=== PATIENT | female | born 1995 | race Caucasian/White ===

== ENCOUNTER → 2017-08-21 | Outpatient (CLI) | payer OTHER ==
--- NOTE | 2017-08-21 15:14 | REP ---
FIRST TRIMESTER ULTRASOUND: Real-time sonographic evaluation of the pelvis performed utilizing transabdominal and endovaginal technique. The uterus measures 8.2 x 4.6 x 5.0 cm. Endometrial thickness is mildly increased at 17 mm. There is no intrauterine gestational sac or endometrial fluid collection. The right ovary measures 3.1 x 1.4 x 2.5 cm and left ovary 3.4 x 2.4 x 3.3 cm. There is no torsion bilaterally with blood flow seen in each ovary with duplex Doppler evaluation, RI right ovary 0.73 and left ovary 0.52. Dominant follicle measures 2.3 x 1.8 x 2.0 cm in the left ovary. There is no other evidence of adnexal mass. There is trace free fluid in the cul-de-sac. IMPRESSION: Mild thickening of the endometrium without an intrauterine gestational sac. No torsion and no adnexal mass. Trace free fluid in the cul-de-sac. Findings could represent early intrauterine , missed AB or ectopic . Suggest correlation with serial quantitative beta hCG values. Signed by Renard Zaman MD 08/21/2017 03:16 P
== END ==
LOC: M LAB 11:39
PROVIDERS: ATTEND Obstetrics & Gynecology
DX: Z34.81 Encounter for supervision of other normal pregnancy, first trimester (principal)

== ENCOUNTER → 2017-08-23 | Outpatient (CLI) | payer OTHER | LOC: M LAB 10:55 | PROVIDERS: ATTEND Midwife | DX: Z32.00 Encounter for pregnancy test, result unknown (principal) ==

== ENCOUNTER 2018-02-18 08:48 | Emergency (ER) | payer OTHER ==
[2018-02-18 09:43] LABS: CONTROL LINE UCG INT CTR LINE PRESENT; URINE PREG TEST NEGATIVE (NEGATIVE)
[2018-02-18 09:48] LABS: KETONE, URINE AUTO RFX NEGATIVE (NEGATIVE); NITRITE, URINE AUTO RFX NEGATIVE (NEGATIVE); RBC, URINE AUTO RFX 0 /HPF (0-3); SQUAM EPITHELIAL CELL UR AURFX 0 /HPF (0-6)
[2018-02-18] MEDS: KETOROLAC TROMETHAMINE 10 MG TAB PO (09:54)
[2018-02-18] MEDS: PHENAZOPYRIDINE 100 MG TAB PO (09:55)
[2018-02-18 10:01] LABS: LEUKOCYTE ESTERASE UR AUTO RFX 3+ (NEGATIVE); WBC, URINE AUTO RFX 14 /HPF (0-3)
== END 2018-02-18 10:29 | disposition home or self-care (01) ==
LOC: M ED 08:48
DX: N30.91 Cystitis, unspecified with hematuria (principal); Z79.3 Long term (current) use of hormonal contraceptives; Z79.899 Other long term (current) drug therapy; Z88.0 Allergy status to penicillin
CPT/HCPCS: 84703

== ENCOUNTER → 2018-04-08 | Outpatient (REF) | payer OTHER ==
[2018-04-08 13:32] LABS: APPEARANCE, URINE CLEAR (CLEAR); BACTERIA, URINE AUTO NEGATIVE (NEGATIVE); BILIRUBIN, URINE AUTO NEGATIVE (NEGATIVE); BLOOD, URINE BLOOD 1+ (NEGATIVE); COLOR, URINE YELLOW (YELLOW); GLUCOSE, URINE (UA) AUTO NEGATIVE (NEGATIVE); KETONE, URINE AUTO NEGATIVE (NEGATIVE); LEUKOCYTE ESTERASE, URINE AUTO NEGATIVE (NEGATIVE); MUCUS, URINE SMALL (NEGATIVE); NITRITE, URINE AUTO NEGATIVE (NEGATIVE); PROTEIN, URINE AUTO NEGATIVE (NEGATIVE); RBC, URINE AUTO 4 /HPF (0-3); SQUAMOUS EPITHELIAL CELL UR AU 1 /HPF (0-6); UROBILINOGEN, URINE AUTO 0.2 mg/dL (0.0-2.0); WBC, URINE AUTO 2 /HPF (0-3)
== END ==
LOC: M SMT 13:14
DX: N39.0 Urinary tract infection, site not specified (principal)

== ENCOUNTER → 2018-04-09 | Outpatient (CLI) | payer OTHER | LOC: M WHC 10:26 | DX: N39.0 Urinary tract infection, site not specified (principal) | CPT/HCPCS: 76857 ==

== ENCOUNTER 2018-04-28 20:56 | Emergency (ER) | payer OTHER ==
[2018-04-28 21:34] LABS: CONTROL LINE UCG INT CTR LINE PRESENT; URINE PREG TEST POSITIVE (NEGATIVE)
[2018-04-28 21:35] LABS: KETONE, URINE AUTO RFX NEGATIVE (NEGATIVE); LEUKOCYTE ESTERASE UR AUTO RFX NEGATIVE (NEGATIVE); MUCUS, URINE RFX SMALL (NEGATIVE); NITRITE, URINE AUTO RFX NEGATIVE (NEGATIVE); RBC, URINE AUTO RFX 1 /HPF (0-3); SPECIFIC GRAVITY UR AUTO RFX 1.009 (1.002-1.035); SQUAM EPITHELIAL CELL UR AURFX 4 /HPF (0-6); WBC, URINE AUTO RFX 1 /HPF (0-3)
[2018-04-28 21:59] LABS: BASO % 0.3 % (0.0-1.0); EOS # 0.1 10^3/uL (0.0-0.50); EOS % 1.1 % (0.0-3.0); HEMATOCRIT 37.3 % (36.0-47.0); HEMOGLOBIN 12.6 g/dl (12.0-15.5); IMMATURE GRANULOCYTE % 0.4 % (0-3.0); LYMPH # 2.3 10^3/uL (1.5-6.5); LYMPH % 31.2 % (24.0-44.0); MEAN CORPUSCULAR HEMOGLOBIN 29.4 pg (27.0-33.0); MEAN CORPUSCULAR HGB CONC 33.8 g/dl (32.0-36.5); MEAN CORPUSCULAR VOLUME 87.1 fl (80.0-96.0); MONO # 0.5 10^3/uL (0.0-0.8); MONO % 6.6 % (0.0-5.0); NEUTROPHILS # 4.5 10^3/uL (1.8-7.7); NEUTROPHILS % 60.4 % (36.0-66.0); PLATELET COUNT, AUTOMATED 220 10^3/uL (150-450); RED BLOOD COUNT 4.28 10^6/uL (4.00-5.40); RED CELL DISTRIBUTION WIDTH 13.6 % (11.5-14.5); WHITE BLOOD COUNT 7.4 10^3/uL (4.0-10.0)
[2018-04-28 22:37] LABS: HCG, SERUM QUANTITATIVE 9014 MIU/ML
== END 2018-04-29 00:46 | disposition home or self-care (01) ==
LOC: M ED 04-29 00:46
DX: O26.891 Other specified pregnancy related conditions, first trimester (principal); R10.2 Pelvic and perineal pain; Z3A.01 Less than 8 weeks gestation of pregnancy; Z88.0 Allergy status to penicillin
CPT/HCPCS: 76801

== ENCOUNTER 2018-05-05 11:46 | Emergency (ER) | payer OTHER ==
[2018-05-05 12:23] LABS: KETONE, URINE AUTO RFX NEGATIVE (NEGATIVE); NITRITE, URINE AUTO RFX NEGATIVE (NEGATIVE); RBC, URINE AUTO RFX 1 /HPF (0-3); SQUAM EPITHELIAL CELL UR AURFX 0 /HPF (0-6); WBC, URINE AUTO RFX 9 /HPF (0-3)
[2018-05-05 12:33] LABS: LEUKOCYTE ESTERASE UR AUTO RFX 3+ (NEGATIVE)
== END 2018-05-05 13:15 | disposition home or self-care (01) ==
LOC: M ED 11:46
DX: O23.41 Unspecified infection of urinary tract in pregnancy, first trimester (principal); Z88.0 Allergy status to penicillin; Z3A.01 Less than 8 weeks gestation of pregnancy
CPT/HCPCS: 81001

== ENCOUNTER 2018-06-22 18:25 | Emergency (ER) | payer OTHER ==
[2018-06-22 20:38] LABS: CONTROL LINE UCG INT CTR LINE PRESENT; URINE PREG TEST POSITIVE (NEGATIVE)
[2018-06-22 20:48] LABS: KETONE, URINE AUTO RFX NEGATIVE (NEGATIVE); LEUKOCYTE ESTERASE UR AUTO RFX NEGATIVE (NEGATIVE); NITRITE, URINE AUTO RFX NEGATIVE (NEGATIVE); RBC, URINE AUTO RFX 2 /HPF (0-3); SPECIFIC GRAVITY UR AUTO RFX 1.009 (1.002-1.035); SQUAM EPITHELIAL CELL UR AURFX 2 /HPF (0-6); WBC, URINE AUTO RFX 1 /HPF (0-3)
[2018-06-22 23:34] LABS: CHLAMYDIA DNA AMPLIFICATION NEGATIVE (NEGATIVE); GC DNA AMPLIFICATION NEGATIVE (NEGATIVE)
== END 2018-06-22 22:53 | disposition home or self-care (01) ==
LOC: M ED 18:25
DX: O26.891 Other specified pregnancy related conditions, first trimester (principal); R10.2 Pelvic and perineal pain; Z3A.13 13 weeks gestation of pregnancy; Z88.0 Allergy status to penicillin
CPT/HCPCS: 84703

== ENCOUNTER 2018-07-12 11:33 | Emergency (ER) | payer OTHER | END 2018-07-12 14:36 | disposition home or self-care (01) | LOC: M ED 11:33 | DX: O23.592 Infection of other part of genital tract in pregnancy, second trimester (principal); B37.3 Candidiasis of vulva and vagina; Z3A.16 16 weeks gestation of pregnancy; Z88.0 Allergy status to penicillin; Z87.440 Personal history of urinary (tract) infections; Z79.2 Long term (current) use of antibiotics | CPT/HCPCS: 99284 ==

== ENCOUNTER → 2018-08-21 | Outpatient (REF) | payer OTHER ==
[2018-08-21 18:15] LABS: APPEARANCE, URINE HAZY (CLEAR); BACTERIA, URINE AUTO NEGATIVE (NEGATIVE); BILIRUBIN, URINE AUTO NEGATIVE (NEGATIVE); BLOOD, URINE BLOOD NEGATIVE (NEGATIVE); COLOR, URINE AMBER (YELLOW); GLUCOSE, URINE (UA) AUTO NEGATIVE (NEGATIVE); KETONE, URINE AUTO NEGATIVE (NEGATIVE); LEUKOCYTE ESTERASE, URINE AUTO NEGATIVE (NEGATIVE); MUCUS, URINE SMALL (NEGATIVE); NITRITE, URINE AUTO NEGATIVE (NEGATIVE); PROTEIN, URINE AUTO NEGATIVE (NEGATIVE); RBC, URINE AUTO 1 /HPF (0-3); SPECIFIC GRAVITY URINE AUTO 1.024 (1.002-1.035); SQUAMOUS EPITHELIAL CELL UR AU 1 /HPF (0-6); UROBILINOGEN, URINE AUTO 0.2 mg/dL (0.0-2.0); WBC, URINE AUTO 1 /HPF (0-3)
== END ==
LOC: M LAB REF 17:06
DX: N39.0 Urinary tract infection, site not specified (principal)
CPT/HCPCS: 81001

== ENCOUNTER 2019-01-01 12:48 | Inpatient (IN) | payer OTHER ==
[2019-01-01] VITALS (9 sets, daily range): BP systolic 103–125; BP diastolic 56–78
[~2019-01-01] VITALS: Ht 167.6 cm; Wt 90.0 kg
[~2019-01-01 12:48] MED LIST: BCP; CIPR-249 PO; CLIN150C14 PO; KETO10TAB PO; MACR100C43 PO; MICOCRE PV; PRENCHW PO; PYRI1TAB5 PO; TARI1TAB PO; prenatals
[2019-01-01] MEDS ORDERED: LACTATED RINGER'S 1000 ML IV STA (14:01)
[2019-01-01] MEDS ORDERED: miSOPROStol 50 MCG 1/2 TAB (S0191) PO ONE (14:30)
--- NOTE | 2019-01-01 14:42 | HPEPDOC ---
Obstetrical History & Physical General Date of Admission Jan 01, 2019 at 12:48 History of Present Illness 23 yo at 41+0 weeks by 9+0 week US on [id number] presents today to L&D f or IOL for late term gestation. She reports feeling well today and has no complaints. She denies any vaginal bleeding, leakage of fluid, or contractions. She endorses excellent movement. 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 47 pound weight gain in Past Medical History Past Obstetrical History : Past Obstetrical History: Primgravida Past Medical History Medical History Denies Surgical History: Denies/None Family History Significant Family History: No pertinent family hx Social History Marital Status: Family situation: Spouse/partner home Psychosocial History: No pertinent psych hx * Smoker: non-smoker Alcohol: Denies Drugs: denies Imunizations Tdap status: needs (Unknown if received) Influenza Status: current Allergies Coded Allergies: Penicillins (Verified Allergy, Unknown, 01/01/19) Medications Scheduled Miconazole Nitrate (Miconazole 7) 2 % Cre, 1 APLCTR PV QPM Pnv No.118/Iron Fumarate/FA ( 19 Chewable Tablet) 1 Chw Chw, 2 CHW PO DAILY Physical Examination Physical Examination GENERAL: Alert and oriented times three. ABDOMEN: Gravid and non-tender to touch. FETUS: Is vertex (VTX) by sterile vaginal examination EXTREMITIES: No edema. No HSV lesions on vagina or perineum. Vital Signs/I&O Vital Signs Date Time Temp Pulse Resp B/P (MAP) Pulse Ox O2 Delivery O2 Flow Rate FiO2 01/01/19 13:07 98.1 86 16 120/78 (92) Laboratory Data 24H LABS Laboratory Tests 2 01/01/19 13:21: Serology Scanned Report Hepatitis B Testing Urine Culture: No Growth Pertinent Laboratoy Data Blood Type: A+ RBC Antibody Screen: Negative HIV: Negative Hepatitis B: Negative Hepatitis C: Unknown Rapid Plasma Reagin: Nonreactive Rubella: Immune Varicella: Immune Chlamydia/Gonorrhea: Negative Group B Streptococcus: Negative Quad Screen Test: Unknown Cystic Fibrosis: Unknown Glucose Tolerance Test: 96 Anatomy Ultrasound Placenta Location: Posterior Normal Anatomy: Yes Placenta Previa: No Steroid Therapy Steroid Therapy: No Vaginal Examination Dilation: Fingertip Effacement: 50% Station: -3 Cervical Consistency: Medium Cervical Position: Posterior Presentation: Cephalic presentation Position: Vertex (occiput) Assessment Heart Rate (FHR): 135 Variability: Moderate Accelerations: Positive Decelerations: None Tocometer Contractions: Yes Frequency: irregular Duration: less than 60 seconds Strength: palpated as mild Assessment/Plan Assessment 23 yo at 41+0 weeks presents today for IOL for late term gestation. Plan Admit. Apply IV fluids. GBS negative. Cervix unfavorable. Will start with cervical ripening via misoprostol. Patient candidate for epidural when in active labor. Clear liquid diet for now. Anticipate . DO ARGELIA George CHRISTOPHER J. DO Jan 01, 2019 14:42
[2019-01-01 15:14] LABS: HEMATOCRIT 35.5 % (36.0-47.0); HEMOGLOBIN 11.9 g/dl (12.0-15.5); MEAN CORPUSCULAR HEMOGLOBIN 29.4 pg (27.0-33.0); MEAN CORPUSCULAR HGB CONC 33.5 g/dl (32.0-36.5); MEAN CORPUSCULAR VOLUME 87.7 fl (80.0-96.0); PLATELET COUNT, AUTOMATED 210 10^3/uL (150-450); RED BLOOD COUNT 4.05 10^6/uL (4.00-5.40); WHITE BLOOD COUNT 7.9 10^3/uL (4.0-10.0)
--- NOTE | 2019-01-01 20:22 | IPNPDOC ---
Text Note Date of Service The patient was seen on 01/01/19. NOTE Presented to room for assessment of progress. Cervix: /-3, posterior. Cesar bulb with 60ml saline intrauterine placed. Will run concurrent low dose pitocin. Stadol/phenergan ordered for pain as needed. FHR remains Cat I. Safe to proceed. DO Shad A-FIB/CHADSVASC A-FIB History Current/History of A-Fib/PAF?: No VS,Fishbone, I+O VS, Fishbone, I+O Laboratory Tests 01/01/19 14:50 Red Blood Count 4.05, Mean Corpuscular Volume 87.7, Mean Corpuscular Hemoglobin 29.4, Mean Corpuscular Hemoglobin Concent 33.5, Red Cell Distribution Width 14.0 Vital Signs Date Time Temp Pulse Resp B/P (MAP) Pulse Ox O2 Delivery O2 Flow Rate FiO2 01/01/19 18:20 97.3 73 18 120/71 (87) PHI STOUT DO Jan 01, 2019 20:22
[2019-01-01] MEDS ORDERED: PROMETHAZINE INJ 25 MG/ML VIAL (J2550) IV ONE (20:30)
[2019-01-01] MEDS ORDERED: OXYTOCIN DRIP 30 UNITS in APPROPRIATE DILUENT 1 EA IV SCH (20:30)
[2019-01-01] MEDS: LR 1,000 ML IV SCH (21:34)
[2019-01-01] MEDS: BUTORPHANOL 2 MG/ML INJ (J0595) IV PRN (22:15)
[2019-01-02] VITALS (55 sets, daily range): BP systolic 89–133; BP diastolic 50–92
[2019-01-02] MEDS: BUTORPHANOL 2 MG/ML INJ (J0595) IV PRN (03:02)
[2019-01-02] MEDS ORDERED: FENTANYL 2MCG/ML ROPIVACAINE 0.2% IN 0.9% NACL 100ML IVBAG As Ordered ONE (05:22)
[2019-01-02] MEDS ORDERED: EPIDURAL COMMENT XX SCH (06:30)
[2019-01-02] MEDS ORDERED: EPIDURAL/PCA KEYS XX PRN (06:30)
[2019-01-02] MEDS ORDERED: FENTANYL/ROPIVACAINE/NACL BAG 100 ML EPIDURAL SCH (06:30)
[2019-01-02] MEDS ORDERED: ePHEDrine SULFATE 25 MG/5 ML(5MG/ML) SYRINGE IV PRN (06:30)
[2019-01-02] MEDS ORDERED: diphenhydrAMINE INJ 50MG/ML VIAL (J1200) IV PRN (06:30)
[2019-01-02] MEDS ORDERED: ONDANSETRON 4MG/2ML VIAL (J2405) IV PRN ×2 (06:30→15:45)
[2019-01-02] MEDS ORDERED: REFRIGERATOR IV KEYS XX PRN (06:30)
[2019-01-02] MEDS ORDERED: NALOXONE INJ 0.4 MG/1 ML VIAL (J2310) IV PRN (06:30)
[2019-01-02] MEDS: LR 1,000 ML IV SCH ×2 (06:42→10:27)
--- NOTE | 2019-01-02 07:08 | IPNPDOC ---
Text Note Date of Service The patient was seen on 01/02/19. NOTE SROM clear fluid occurred at ~0300. Contraction pain acutely worsened and she received an epidural. Exam: Cesar bulb out, cervix 5/80/-1. Hypotension after epidural required two doses of ephedrine to correct. A couple FHR decels during this process but once blood pressure corrected the FHR corrected. Pitocin was cut in half. Patient progressing well into active labor. FHR Cat II, but with moderate variability and overall reassuring. Safe to proceed. DO Shad A-FIB/FELIXDSVASC A-FIB History Current/History of A-Fib/PAF?: No VS,Fishbone, I+O VS, Fishbone, I+O Laboratory Tests 01/01/19 14:50 Red Blood Count 4.05, Mean Corpuscular Volume 87.7, Mean Corpuscular Hemoglobin 29.4, Mean Corpuscular Hemoglobin Concent 33.5, Red Cell Distribution Width 14.0 Vital Signs Date Time Temp Pulse Resp B/P (MAP) Pulse Ox O2 Delivery O2 Flow Rate FiO2 01/02/19 06:47 67 101/56 (71) 01/02/19 06:12 18 01/02/19 05:31 98.3 I&O- Last 24 Hours up to 6 AM 01/02/19 06:00 Output Total 600 ml Balance -600 ml PHI STOUT DO Jan 02, 2019 07:08
--- NOTE | 2019-01-02 09:00 | IPNPDOC ---
Text Note Date of Service The patient was seen on 01/02/19. NOTE [id number] @ 0848- SBAR from Dr. Kulkarni at 0830. 23 yo @ 41+1 now. Admitted on 01JAN2019 for IOL d/t pending post- dates. Progressed to 7-8 cm per RN. S: Resting on left side with peanut ball. Reports she is feeling lots of pressure that comes and goes, otherwise comfortable. Spouse is at bedside. O: VS- WNL, afebrile FHR-140, moderate variability, + accels, intermittent-late, variable, and early decelerations SROM @ 0306 clear fluid, fluid remains clear PIT @ 4 mU/min O2 in place SVE- deferred (/0 per RN) [id number] grams LABS Varicella- Immune Rubella- Immune Hep B- NR RPR- NR HIV- negative A positive GBS negative PMH Hx of MRSA with 3 negative swabs during HSV I positive with genital outbreaks PSH DENIES A: 23 you @ 41+1 with CAT II FHR tracing and continued labor progress P: Continue to monitor and assess. Continue pitocin IOL per unit protocol. Reassess in 2 hours or prn VS,Fishbone, I+O VS, Fishbone, I+O Laboratory Tests 01/01/19 14:50 Red Blood Count 4.05, Mean Corpuscular Volume 87.7, Mean Corpuscular Hemoglobin 29.4, Mean Corpuscular Hemoglobin Concent 33.5, Red Cell Distribution Width 14.0 Vital Signs Date Time Temp Pulse Resp B/P (MAP) Pulse Ox O2 Delivery O2 Flow Rate FiO2 01/02/19 07:08 67 18 121/63 (82) 01/02/19 06:53 98.4 I&O- Last 24 Hours up to 6 AM 01/02/19 06:00 Output Total 600 ml Balance -600 ml LATRICIA SHI CNM Jan 02, 2019 09:00
--- NOTE | 2019-01-02 12:23 | IPNPDOC ---
Text Note Date of Service The patient was seen on 01/02/19. NOTE [id number] @ 1215 23 yo @ 41+1 now. Admitted on 01JAN2019 for IOL d/t pending post- dates. S: Resting in semi-daniels. Epidural infusing. Spouse is at bedside. O: VS- WNL, afebrile FHR-150, minimal-moderate variability, + accels, repetitive early decelerat ions CTX-Q 2-3 min, lasting < 90 sec, 210 SROM @ 0306 clear fluid, fluid remains clear PIT @ 6 mU/min SVE- 9/90/0, soft/vtx/ant IUPC placed at time of exam A: 23 you @ 41+1 with CAT I FHR tracing and minimal labor progress, SROM x 9.5 hours P: Continue to monitor and assess. Continue pitocin IOL per unit protocol. Reassess in 2 hours or prn *consulted with Dr. Greenberg. Reviewed FHR tracing. Agrees with above plan of care VS,Aroldo, I+O VS, Aroldo, I+O Laboratory Tests 01/01/19 14:50 Red Blood Count 4.05, Mean Corpuscular Volume 87.7, Mean Corpuscular Hemoglobin 29.4, Mean Corpuscular Hemoglobin Concent 33.5, Red Cell Distribution Width 14.0 Vital Signs Date Time Temp Pulse Resp B/P (MAP) Pulse Ox O2 Delivery O2 Flow Rate FiO2 01/02/19 12:04 97.9 79 18 131/83 (99) I&O- Last 24 Hours up to 6 AM 01/02/19 06:00 Output Total 600 ml Balance -600 ml LATRICIA SHI CNM Jan 02, 2019 12:22
--- NOTE | 2019-01-02 15:34 | DNPDOC ---
[facility] Delivery Note Delivery Note DATE OF DELIVERY: 02JAN2019 @ 1430 PREDELIVERY DIAGNOSIS: 41+1 weeks' gestation and labor. POST DELIVERY DIAGNOSIS: Delivered. PROCEDURE: BARREL STRAIGHTENER: Latricia Shi CNM ANESTHESIA: epidural ESTIMATED BLOOD LOSS: 450 mL. FINDINGS: 7 lbs 6 oz(3350 grams), Score 9/9 DELIVERY SUMMARY: 23 yo @ 41+1 who was admitted to labor and delivery for IOL on 01JAN2019. Pt progressed to c/c/+2 with epidural infusing and strong desire to push. Delivery was via of viable female infant to a clean field; the infant presented OA with no nuchal cord noted. Anterior shoulder(right) delivered with mild downward traction, then the posterior shoulder delivered with mild upward traction; remainder of corpus delivered spontaneously. Vigorous infant placed on mother's chest. Delayed cord clamping x 5 min, then clamped x 2 and cut by FOB. Placenta delivered intact with 3 vessel cord approx 10 min later. Fundal massage was applied and vaginal vault was swept for clots; vagina and perineum examined. 2MLL noted and repaired in usual fashion. Excellent hemostasis noted after repair. Right labial laceration noted with good hemostasis. Fundus firm at U-1. Mother and are bonding well and stable in the delivery room. Anticipate routine PP care EBL-450 ml -9/9 LATRICIA SHI CNM Jan 02, 2019 15:33
[2019-01-02] MEDS ORDERED: DIBUCAINE 1% OINTMENT 30GM TOP PRN (15:45)
[2019-01-02] MEDS ORDERED: ACETAMINOPHEN 500 MG TAB PO PRN (15:45)
[2019-01-02] MEDS ORDERED: MOM 30ML SUSPENSION UDC PO PRN (15:45)
[2019-01-02] MEDS ORDERED: PROMETHAZINE 25 MG TAB PO PRN (15:45)
[2019-01-02] MEDS ORDERED: DOCUSATE SODIUM 100 MG CAP PO PRN (15:45)
[2019-01-02] MEDS: IBUPROFEN 800 MG TAB PO PRN (15:58)
[2019-01-02] MEDS ORDERED: miSOPROStol 100 MCG TAB (S0191) As Ordered ONE (17:11)
[2019-01-02] MEDS ORDERED: miSOPROStol 200 MCG TAB (S0191) PR ONE (17:15)
[2019-01-03] MEDS: IBUPROFEN 800 MG TAB PO PRN (05:13)
[2019-01-03 06:00] VITALS: BP 116/67
--- NOTE | 2019-01-03 06:40 | IPNPDOC ---
Progress Note Date of Service: Jan 03, 2019 Day#: 1 Progress Note SUBJECT: Ms. Meeks is a 23 yo G2 now P1011 status post uncomplicated spontaneous vaginal delivery at 41+1 at approximately 1430 hours on 02JAN2019 of a female, 7 pounds 6 ounces (3350 grams) with 2MLL and repair, doing well day # 1. She has been ambulating, voiding spontaneously without issue and tolerating regular diet. Breast feeding without issue. Reports lochia is small(less than 1 pad overnight). Patient is ambulating well. Reports some cramping with . Denies any pain. Voiding and stooling without difficulty . OBJECTIVE: VITAL SIGNS: Within normal limits, afebrile. A&O x 3 Breath sounds CTA hear rate regular rate and rhythm, no murmurs, rubs or gallops. Abdomen: Fundus firm at U-2. Soft, NTTP. small lochia. ASSESSMENT: Ms. Meeks is a 23 yo G2 now P1011 status post uncomplicated spontaneous vaginal delivery after presenting for IOL d/t pending post-dates, delivered at 1430 hours on 02JAN2019 @ 41+1 wks, doing well on day 1. Vitals within normal limits, afebrile, hemodynamically stable with no evidence of infection. PLAN: 1. Discharge tomorrow depending on discharge 2. Tylenol and Motrin for pain prn 3. Encourage breast feeding and ambulation. 4. condoms and spermacide for contraception 5. Routine PP care VS, I&O, 24H, Fishbone Vital Signs/I&O Vital Signs Date Time Temp Pulse Resp B/P (MAP) Pulse Ox O2 Delivery O2 Flow Rate FiO2 01/03/19 06:00 97.7 68 16 116/67 (83) 98 I&O- Last 24 Hours up to 6 AM 01/03/19 06:00 Intake Total 4180 ml Output Total 2250 ml Balance 1930 ml LATRICIA SHI CNM Jan 03, 2019 06:40
[2019-01-03] MEDS: PRENATAL VITAMINS CHEWABLE TABLET PO SCH (08:43)
[2019-01-03 18:00] VITALS: BP 130/72
--- NOTE | 2019-01-04 05:20 | DS.PDOC ---
Discharge Summary General Date of Admission Jan 01, 2019 at 12:48 Date of Discharge [id number] Discharge Summary ADMITTING DIAGNOSES: postdates induction DISCHARGE DIAGNOSES: Same, HOSPITAL COURSE: Admitted and delivery uncomplicated, . course uncomplicated. DISCHARGE MEDICATIONS: Motrin, Lanolin DISCHARGE INSTRUCTIONS: Nothing in the vagina for 6 weeks. F/U in OBGYN clinic in 6-8 weeks. Sessions Vital Signs/I&Os Vital Signs Date Time Temp Pulse Resp B/P (MAP) Pulse Ox O2 Delivery O2 Flow Rate FiO2 01/03/19 18:00 98.4 86 18 130/72 (91) 01/03/19 06:00 98 Discharge Medications Scheduled Miconazole Nitrate (Miconazole 7) 2 % Cre, 1 APLCTR PV QPM Pnv No.118/Iron Fumarate/FA ( 19 Chewable Tablet) 1 Chw Chw, 2 CHW PO DAILY, (Reported) Allergies Coded Allergies: Penicillins (Verified Allergy, Unknown, 01/01/19) SESSIONS,KUMAR Blevins MD Jan 04, 2019 05:20
--- NOTE | 2019-01-04 05:21 | IPNPDOC ---
Text Note Date of Service The patient was seen on 01/04/19. NOTE PPD2 States feeling well, pain controlled with prescribed meds. Baby bonding and feeding well. No heavy VB. Lochia slowing. Ambulatory. Tolerating PO without issues. Voiding spont. No CP/LP/SOB. VSSAF NAD A&O LE no C/C/E Ut at U-2, firm a/p: Doing well. Cont routine care. D/C today. Sessions A-FIB/RAVI A-FIB History Current/History of A-Fib/PAF?: No Current Oral Anticoagulant The: No VS,Fishbone, I+O VS, Fishbone, I+O Vital Signs Date Time Temp Pulse Resp B/P (MAP) Pulse Ox O2 Delivery O2 Flow Rate FiO2 01/03/19 18:00 98.4 86 18 130/72 (91) 01/03/19 06:00 98 SESSIONSKUMAR MD Jan 04, 2019 05:21
[2019-01-04] MEDS ORDERED: IBUP80TA PO (05:32)
[2019-01-04 05:45] VITALS: BP 107/58
[2019-01-04] MEDS: PRENATAL VITAMINS CHEWABLE TABLET PO SCH (09:09)
== END 2019-01-04 10:00 | disposition home or self-care (01) | DRG 807 ==
LOC: M LDI 12:48 → M OBS 01-02 18:49
PROVIDERS: ADMIT Obstetrics & Gynecology; ATTEND Obstetrics & Gynecology
PROC: 3E033VJ Introduction of Other Hormone into Peripheral Vein, Percutaneous Approach (ICD-10-PCS; 2019-01-01)
PROC: 10E0XZZ Delivery of Products of Conception, External Approach (ICD-10-PCS; principal; 2019-01-02)
PROC: 0HQ9XZZ Repair Perineum Skin, External Approach (ICD-10-PCS; 2019-01-02)
DX: O48.0 Post-term pregnancy (principal); Z37.0 Single live birth; Z3A.41 41 weeks gestation of pregnancy; O70.1 Second degree perineal laceration during delivery

== ENCOUNTER → 2019-03-05 | Outpatient (REF) | payer OTHER ==
[~2019-03-05] MED LIST changes: +IBUP80TA PO
[2019-03-05 12:45] LABS: APPEARANCE, URINE MANUAL HAZY (CLEAR); COLOR, URINE MANUAL ORANGE (YELLOW)
[2019-03-05 12:46] LABS: PH,URINE MAN OBSCURED UNITS (5.0 - 7.0)
[2019-03-05 12:47] LABS: BILIRUBIN, URINE MANUAL OBSCURED (NEGATIVE); BLOOD URINE MANUAL OBSCURED (NEGATIVE); GLUCOSE, URINE (UA) MANUAL OBSCURED mg/dL (NEGATIVE); KETONE, URINE MANUAL OBSCURED mg/dL (NEGATIVE); LEUKOCYTE ESTERASE, URINE MAN OBSCURED (NEGATIVE); NITRITE, URINE MANUAL OBSCURED (NEGATIVE); PROTEIN, URINE MANUAL OBSCURED mg/dL (NEGATIVE); SPECIFIC GRAVITY,URINE MANUAL 1.021 (1.002-1.035); UROBILINOGEN, URINE MANUAL OBSCURED mg/dl (NORMAL)
[2019-03-05 13:02] LABS: AMORPHOUS SEDIMENT, URINE MOD AMOUNT (NEGATIVE); BACTERIA, URINE SMALL AMOUNT; HYALINE CAST, URINE NONE SEEN /lpf (0-1); SQUAMOUS EPITHELIAL CELL URINE MOD AMOUNT /hpf (SMALL AMT); WBC, URINE 30-40 /hpf (0-3)
== END ==
LOC: M LAB REF 12:30
PROVIDERS: ATTEND Physician Assistant Medical
DX: N39.0 Urinary tract infection, site not specified (principal)

== ENCOUNTER → 2019-05-05 | Outpatient (CLI) | payer OTHER ==
--- NOTE | 2019-05-05 19:13 | REP ---
Pelvic sonography: History: Left lower quadrant pain. Findings: Transabdominal and transvaginal scanning are performed. Uterine dimensions are 7.3 x 4.7 x 6.0 cm. Endometrial echo is 0.5 cm thick. The uterus is retroflexed. Visualized bladder mitchell are smooth. There is a trace of cul-de-sac fluid. Right ovary measures 2.6 x 1.9 x 2.7 cm. There is a right adnexal cyst measuring 4.3 x 2.8 x 2.7 cm. This is anechoic. The left ovary measures 3.9 x 1.7 x 2.8 cm and has a normal appearance. Blood flow was observed in both ovaries. Impression: 4.3 cm simple cyst right ovary. Retroflexed uterus. Electronically Signed by Andres Esqueda MD 05/05/2019 07:27 P
== END ==
LOC: M RAD 08:36
PROVIDERS: ATTEND Physician Assistant
DX: R10.2 Pelvic and perineal pain (principal)

== ENCOUNTER → 2020-06-16 | Outpatient (REF) | payer OTHER ==
[2020-06-16 13:40] LABS: APPEARANCE, URINE MANUAL CLOUDY (CLEAR); COLOR, URINE MANUAL ORANGE (YELLOW)
[2020-06-16 13:43] LABS: SPECIFIC GRAVITY,URINE MANUAL 1.015 (1.002-1.035)
[2020-06-16 13:44] LABS: GLUCOSE, URINE (UA) MANUAL NEGATIVE (NEGATIVE); LEUKOCYTE ESTERASE, URINE MAN POSITIVE (NEGATIVE)
[2020-06-16 13:45] LABS: BLOOD URINE MANUAL POSITIVE (NEGATIVE)
[2020-06-16 13:46] LABS: BILIRUBIN, URINE MANUAL OBSCURED (NEGATIVE); KETONE, URINE MANUAL OBSCURED mg/dL (NEGATIVE); NITRITE, URINE MANUAL OBSCURED (NEGATIVE); PROTEIN, URINE MANUAL OBSCURED mg/dL (NEGATIVE); UROBILINOGEN, URINE MANUAL OBSCURED mg/dl (NORMAL)
[2020-06-16 14:00] LABS: RBC, URINE TNTC /hpf (0-3); WBC, URINE TNTC /hpf (0-3)
[2020-06-16 14:01] LABS: BACTERIA, URINE LARGE AMOUNT; SQUAMOUS EPITHELIAL CELL URINE SMALL AMOUNT /hpf (SMALL AMT)
[2020-06-16 14:07] LABS: RENAL EPITHELIAL CELLS, URINE SMALL AMOUNT /hpf
[2020-06-16 14:10] LABS: BLADDER EPITHELIAL CELLS, UR SMALL AMOUNT /hpf
[2020-06-16 14:15] LABS: MUCUS, URINE SMALL AMOUNT (NEGATIVE)
== END ==
LOC: M LAB REF 12:07
PROVIDERS: ATTEND Physician Assistant Medical
DX: N39.0 Urinary tract infection, site not specified (principal)

== ENCOUNTER → 2020-07-06 | Outpatient (REF) | payer OTHER ==
[2020-07-06 17:57] LABS: APPEARANCE, URINE MANUAL TURBID (CLEAR); URINE PREG TEST NEGATIVE (NEGATIVE)
[2020-07-06 17:58] LABS: COLOR, URINE MANUAL RED (YELLOW)
[2020-07-06 17:59] LABS: GLUCOSE, URINE (UA) MANUAL OBSCURED mg/dL (NEGATIVE); KETONE, URINE MANUAL OBSCURED mg/dL (NEGATIVE); PROTEIN, URINE MANUAL OBSCURED mg/dL (NEGATIVE); SPECIFIC GRAVITY,URINE MANUAL 1.015 (1.002-1.035)
[2020-07-06 18:00] LABS: BILIRUBIN, URINE MANUAL OBSCURED (NEGATIVE); BLOOD URINE MANUAL POSITIVE (NEGATIVE); LEUKOCYTE ESTERASE, URINE MAN OBSCURED (NEGATIVE); NITRITE, URINE MANUAL POSITIVE (NEGATIVE); UROBILINOGEN, URINE MANUAL OBSCURED mg/dl (NORMAL)
[2020-07-06 18:01] LABS: RBC, URINE 20-30 /hpf (0-3); SQUAMOUS EPITHELIAL CELL URINE MOD AMOUNT /hpf (SMALL AMT); WBC, URINE 15-20 /hpf (0-3)
[2020-07-06 18:02] LABS: BACTERIA, URINE LARGE AMOUNT
== END ==
LOC: M LAB REF 16:34
PROVIDERS: ATTEND Physician Assistant
DX: N39.0 Urinary tract infection, site not specified (principal)

== ENCOUNTER 2020-08-04 11:52 | Emergency (ER) | payer OTHER ==
[~2020-08-04] VITALS: Ht 167.6 cm; Wt 77.8 kg
[2020-08-04 12:00] VITALS: BP 122/66
[2020-08-04] MEDS ORDERED: KEFL250C11 PO (12:18)
--- NOTE | 2020-08-04 12:43 | REP ---
INDICATION: right ankle pain s/p crush injury COMPARISON: None. TECHNIQUE: AP, lateral, bilateral oblique views. FINDINGS: Lateral soft tissue swelling is appreciated. A fracture fragment of the distal fibular tip is appreciated which may represent acute versus old injury and correlation is required. Remainder of the examination appears normal. IMPRESSION: Lateral swelling with acute versus old lateral malleolus fracture. <Electronically signed by Chase Ornelas > 08/04/20 [id number]
== END 2020-08-04 13:15 | disposition home or self-care (01) ==
LOC: M ED 11:52
DX: S82.64XA Nondisplaced fracture of lateral malleolus of right fibula, initial encounter for closed fracture (principal); W22.8XXA Striking against or struck by other objects, initial encounter; Y92.014 Private driveway to single-family (private) house as the place of occurrence of the external cause; Y93.9 Activity, unspecified; Y99.9 Unspecified external cause status; F33.9 Major depressive disorder, recurrent, unspecified; Z88.0 Allergy status to penicillin; Z79.899 Other long term (current) drug therapy

== ENCOUNTER → 2020-11-08 | Outpatient (REF) | payer OTHER ==
[~2020-11-08] MED LIST changes: -CLIN150C14 PO; +CLIN150C15 PO; +KEFL250C11 PO
== END ==
LOC: M LAB REF 16:13
PROVIDERS: ATTEND Physician Assistant
DX: N76.0 Acute vaginitis (principal)